=== PATIENT | female | born 1990 | race Caucasian/White ===

== ENCOUNTER → 2021-02-17 | Outpatient (CLI) | payer MEDICAID ==
[~2021-02-17] MED LIST: CLONAZEPAM1 MG PO; DULO30CA2 PO; LISD50CA3 PO
[2021-02-17 14:07] LABS: BASO # 0.1 x10^3/uL (0.0-0.2); BASO % 1 % (0-3); EOS # 0.4 x10^3/uL (0.0-0.7); EOS % 4 % (0-3); HEMATOCRIT 40.2 % (36.0-47.0); HEMOGLOBIN 13.1 g/dL (12.0-15.5); LYMPH # 2.9 x10^3/uL (1.0-4.8); LYMPH % 28 % (24-48); MEAN CORPUSCULAR HEMOGLOBIN 27 pg (25-35); MEAN CORPUSCULAR HGB CONC 33 g/dL (31-37); MEAN CORPUSCULAR VOLUME 83 fL (79-100); MONO # 0.6 x10^3/uL (0.0-1.1); MONO % 6 % (0-9); NEUT # 6.2 x10^3/uL (1.8-7.7); NEUT % 61 % (31-73); PLATELET COUNT 255 x10^3/uL (140-400); RED BLOOD COUNT 4.87 x10^6/uL (3.50-5.40); RED CELL DISTRIBUTION WIDTH 16.1 % (11.5-14.5); WHITE BLOOD COUNT 10.2 x10^3/uL (4.0-11.0)
[2021-02-17 14:08] LABS: BILIRUBIN,URINE NEGATIVE (NEG); CLARITY,URINE CLEAR; COLOR,URINE YELLOW; NITRITE,URINE NEGATIVE (NEG); PH,URINE 6.5 (<5.0-8.0); PROTEIN,URINE NEGATIVE (NEG-TRACE)
[2021-02-17 14:15] LABS: BACTERIA,URINE 0 /HPF (0-FEW); WBC,URINE OCC /HPF (0-4)
[2021-02-17 14:16] LABS: RBC,URINE 0 /HPF (0-2)
--- NOTE | 2021-02-17 14:24 | RAD ---
AP and Lateral Views of the Chest 02/17/2021 2:10 PM Indication: Reason: PRE OP, PT TO HAVE HYSTERECTOMY 03/01. Instructions: / History: Comparison: None Findings: There is no focal consolidation or infiltrate identified. The cardiomediastinal silhouette is within normal limits. There is no evidence of pneumothorax or pleural effusion. No acute osseous a bnormalities are identified. Impression: No evidence of acute cardiopulmonary process. Electronically signed by: Eben Corona MD (02/17/2021 2:22 PM) [id number]
[2021-02-17 14:46] LABS: ALBUMIN 3.5 g/dL (3.4-5.0); ALBUMIN/GLOBULIN RATIO 0.9 (1.0-1.7); CALCIUM 8.9 mg/dL (8.5-10.1); CREATININE 0.7 mg/dL (0.6-1.0); GFR 98.9; POTASSIUM 4.1 mmol/L (3.5-5.1); TOTAL BILIRUBIN 0.4 mg/dL (0.2-1.0); TOTAL PROTEIN 7.2 g/dL (6.4-8.2)
== END ==
LOC: SURGPAT 13:10
PROVIDERS: ATTEND Obstetrics & Gynecology
DX: Z01.818 Encounter for other preprocedural examination (principal); N92.0 Excessive and frequent menstruation with regular cycle; R52 Pain, unspecified; N80.9 Endometriosis, unspecified; N83.209 Unspecified ovarian cyst, unspecified side; Z87.891 Personal history of nicotine dependence
CPT/HCPCS: 36415; 71046; 80053; 81001; 85025

== ENCOUNTER → 2021-02-27 | Outpatient (CLI) | payer MEDICAID | LOC: LAB 14:27 | PROVIDERS: ATTEND Obstetrics & Gynecology | DX: Z01.812 Encounter for preprocedural laboratory examination (principal); Z20.822 Contact with and (suspected) exposure to COVID-19 | CPT/HCPCS: U0003; U0005 ==

== ENCOUNTER 2021-03-01 06:11 | Observation (INO) | payer MEDICAID ==
[2021-02-17 13:40] VITALS: BP 144/84
[2021-03-01] VITALS (11 sets, daily range): BP systolic 89–138; BP diastolic 49–86
[~2021-03-01] VITALS: Ht 172.7 cm; Wt 111.0 kg
[~2021-03-01 06:11] MED LIST changes: +HYDROmorphone 2 MG/ML VIAL IVP PRN; +IV RINGERS,LACTATED 1000ML 1,000 ML IV SCH; +PROCHLORPERAZINE 10 MG/2 ML VIAL. IVP PRN; +fentaNYL PF VIAL 100 MCG/2 ML VIAL IVP PRN
[2021-03-01] MEDS ORDERED: PROPOFOL 10 MG/ML (20ML) VIAL. IV ONE (07:04)
[2021-03-01] MEDS ORDERED: ROCURONIUM 50 MG/5 ML VIAL. ONE (07:04)
[2021-03-01] MEDS ORDERED: ESTROGENS, CONJ VAGINAL CREAM 30GM TUBE. ONE (07:04)
[2021-03-01] MEDS ORDERED: INDIGOTINDISULFONATE SODIUM 40 MG/5 ML AMPUL. ONE (07:05)
[2021-03-01] MEDS ORDERED: fentaNYL PF VIAL 100 MCG/2 ML VIAL ONE ×2 (07:05→09:30)
[2021-03-01] MEDS ORDERED: BUPIVACAINE-EPI 0.25%-1:200000 MPF 30 ML VIAL. ONE (07:05)
[2021-03-01] MEDS ORDERED: LIDOCAINE 1% PF 5 ML VIAL. ONE (07:10)
[2021-03-01] MEDS ORDERED: GLYCOPYRROLATE 1 MG/5 ML VIAL. ONE (07:10)
[2021-03-01] MEDS ORDERED: SUCCINYLCHOLINE 200 MG/10 ML VIAL. ONE (07:23)
[2021-03-01] MEDS ORDERED: HYDROmorphone 2 MG/ML VIAL ONE (08:53)
[2021-03-01] MEDS ORDERED: NEOSTIGMINE METHYLSULFATE 5 MG/5 ML SYRINGE. ONE (09:00)
[2021-03-01] MEDS ORDERED: 0.9 % SODIUM CHLORIDE 10 ML DISP.SYRIN. IV PRN (09:30)
[2021-03-01] MEDS ORDERED: ZOLPIDEM 5 MG TABLET. PO PRN (09:30)
[2021-03-01] MEDS ORDERED: MAGNESIUM HYDROXIDE 2,400 MG/30 ML ORAL.SUSP. PO PRN (09:30)
[2021-03-01] MEDS ORDERED: KETOROLAC 30 MG/ML VIAL. IVP PRN (09:30)
[2021-03-01] MEDS ORDERED: ONDANSETRON PF 4 MG/2 ML VIAL. IV PRN (09:30)
[2021-03-01] MEDS ORDERED: NALOXONE 0.4 MG/ML VIAL. IV PRN (09:30)
[2021-03-01] MEDS ORDERED: MAG HYDROX/ALUMINUM HYD/SIMETH 30 ML ORAL.SUSP PO PRN (09:30)
[2021-03-01] MEDS ORDERED: MORPHINE SULFATE 2 MG/ML INJ. IV PRN (09:30)
[2021-03-01] MEDS ORDERED: LACTULOSE 20 GM/30 ML SOLUTION. PO PRN (09:30)
[2021-03-01] MEDS ORDERED: CALCIUM CARBONATE 500 MG TAB.CHEW PO PRN (09:30)
[2021-03-01] MEDS ORDERED: diphenhydrAMINE HCL 25 MG CAPSULE PO PRN (09:30)
[2021-03-01] MEDS ORDERED: diphenhydrAMINE 50 MG/ML VIAL IV PRN (09:30)
[2021-03-01] MEDS: fentaNYL PF VIAL 100 MCG/2 ML VIAL IVP PRN ×2 (09:32→09:49)
--- NOTE | 2021-03-01 09:35 | PDOC4 ---
BRIEF OPERATIVE NOTE Date: Mar 01, 2021 Pre-Op Diagnosis menorrhagia, pain, history ovarian cyst Post-Op Diagnosis same plus endometriosis Procedure Performed LAVH/bilateral salpingectomy Surgeon Dr. Marilia Vega [employer] Coordinator ASHIA Tracy Anesthesiologist Dr. Hernandez Anesthesia Type: General Blood Loss 50cc IV Fluid 1L Urine Output 75cc clear via austin Specimens Obtained cervix, uterus, bilateral tubes Findings mildly enlarged uterus, normal bilateral tubes and ovaries; L ovary with mild endometriosis on it Complications none Operative Note [id number] MARILIA VEGA MD Mar 01, 2021 09:35
[2021-03-01] MEDS: MORPHINE SULFATE 2 MG/ML INJ. IVP PRN ×2 (09:49→10:02)
--- NOTE | 2021-03-01 10:44 | OP ---
DATE OF SURGERY: 03/01/2021 PREOPERATIVE DIAGNOSES: Menorrhagia, pelvic pain, history of ovarian cyst. POSTOPERATIVE DIAGNOSES: Menorrhagia; pelvic pain; history of ovarian cyst; plus some endometriosis, I believe it was prominently on the left ovary. PROCEDURES: Laparoscopic-assisted vaginal hysterectomy, bilateral salpingectomy. SURGEON: Marilia Vega MD [employer] ARCHITECT: ASHIA Jacobson ANESTHESIA: General. ANESTHESIOLOGIST: Suraj Hernandez MD BLOOD LOSS: 50 mL. URINE OUTPUT: 75 mL clear via La catheter. INTRAVENOUS FLUIDS: One liter of crystalloid. SPECIMENS: Cervix, uterus and bilateral tubes. FINDINGS: A mildly enlarged uterus, normal bilateral tubes and ovaries except endo on the left ovary, but no enlarged cystic lesions were seen. COMPLICATIONS: None. DESCRIPTION OF PROCEDURE: This patient was taken to the operating room where general anesthesia was placed. The patient was placed in dorsal lithotomy position in [facility]. The patient's abdomen and vagina were prepped and draped in the normal sterile fashion and a La catheter had been inserted under sterile technique prior to my arrival. Upon my arrival, a timeout was performed. Once everyone agreed on the patient, the site, the procedure, the antibiotics, the procedure was initiated. A bivalve speculum was placed in the patient's vagina. A single-tooth tenaculum was used to grasp the anterior lip of the cervix. A 10 mL of 0.25% Marcaine with epinephrine was used to circumferentially inject around the cervix for both hemo-dissection and hemostatic purposes later. The Valtchev uterine manipulator was placed through the endocervical os, locked on the single tooth tenaculum and the bivalve speculum was then removed. Top gloves were discarded and changed. Attention was then turned to the abdomen where a small infraumbilical skin incision was made over the existing scar. A curved Eva was used to dissect through the subcuticular layer to the fascia. The 5-mm Visiport was used to directly enter the abdominal cavity. Opening the patient's pressure was 5-6 mmHg. Carbon dioxide gas was used to appropriately insufflate the abdominal cavity to maintain a pressure of 15 mmHg. At this point, overhead lights were dimmed and the patient was placed in Trendelenburg position. Right and left lower quadrant ports were placed after transilluminating the abdominal wall, finding an area clear of any vasculature, injecting with local and placing the 5-mm port in under direct visualization, 4-5 mL of air was placed in these trocar cuffs. The camera was then moved laterally to look at the umbilical port. Once it was found to be in and clear, it was also insufflated with the 4-5 mL of air. Again, overhead lights had been dimmed, Trendelenburg position, so the bowel was swept up and out of the way. Uterus was elevated. Cul-de-sac was normal; endo on the left ovary, but no enlarged cystic lesions; tubes looked good; ureter was seen on the left, coursing low in the pelvis; right side was identified as well, so we are going above the ovary, below the tube just doing a salpingectomy, so using the LigaSure starting on the left, cauterizing and cutting above the ovary, below the tube, crossing the left round ligament and the left utero-ovarian pedicle. This was done exactly the same on the right side, elevating the right tube and ovary; going below the tube above the ovary; doing a salpingectomy with the LigaSure; crossing the right utero-ovarian pedicle and right round ligament. The uterus was then pushed cephalad with the manipulator and grasped. A [place] was used to grasp the bladder flap and the monopolar hook was used to cut across and create the bladder flap sharply. It peeled down very, very nicely and easily. Crossing contralaterally, getting the uterines on the left side, staying inside that pedicle through the cardinal and broad ligaments down to the level of the uterosacral, 3-4 bites were taken, cauterizing and cutting the whole way down. Then, on the right side, coming across, getting the uterines and staying inside that pedicle, hugging posteriorly through the cardinal and broads to the uterosacral on that side as well. The entire uterus was free and completely blanched at this point. There was no active bleeding, so all instruments were removed from the abdomen and overhead lights were placed back on and she was taken out of Trendelenburg. Attention was turned vaginally where the single tooth and Valtchevs were removed. A weighted speculum was placed in the patient's vagina. Thyroid Dickson clamps were placed on the anterior and posterior lips of the cervix respectively. A scalpel was used to make a circumferential incision in the cervix. The anterior was taken off the cervix sharply and bluntly finally using the open Ray-Trice 4 x 4 once a plane was and the anterior cul-de-sac was digitally and bluntly entered. The Ray-Trice was passed off and the curved Anastasia was placed in the anterior cul-de-sac. The cervix was elevated and the posterior cul-de-sac was sharply entered with curved Espino scissors. A #0 Vicryl stitch was used to secure the posterior peritoneum here to the vaginal cuff. It was tagged with a curved Eva clamp and the needle was cut and passed off. At this point, the short-weighted vaginal speculum was removed and replaced with the long-weighted El speculum in the posterior cul-de-sac. Curved Phillip clamps x 2 were placed on the patient's left uterosacral ligament where they were doubly clamped with curved Heaneys, cut with curved Espino scissors and suture ligated x 2 with 0 Vicryl. Second one was taken through the vaginal cuff, securing uterosacral ligament to the vaginal cuff, tagging it with a straight Eva clamp and cutting and passing the needle off. This was done exactly the same on the patient's right side, double clamping the uterosacrals with curved Phillip's, cutting with curved Espino scissors and suture ligating x 2 with 0 Vicryl, taking the second one through the vaginal cuff, securing the uterosacral ligament to the vaginal cuff, tagging it with a straight Eva clamp and cutting and passing the needle off. The remaining pedicles on both sides were delineated with the curved mixture. The right angle clamp and the vaginal LigaSure was used to cauterize and cut the remaining pedicles. The cervix and uterus with bilateral tubes were attached, were delivered in total and passed off for permanent pathology. A sponge stick was used to reduce the omentum and the anterior bladder peritoneum was grasped with a long Allis. The long El speculum was removed and replaced with the short-weighted vaginal speculum. There was no active bleeding on any of the pedicles, so at this point, 2-0 Vicryl was taken through the anterior bladder peritoneum, left uterosacral ligament, posterior peritoneum and right uterosacral ligament, thus closing the peritoneum in a pursestring-like fashion. The right and left uterosacral tags were clipped. The cuff was closed in an anterior to posterior running locked fashion and tied to the posterior cuff tag. A sponge stick was used to examine the vaginal cuff and it was completely dry and hemostatic. So at this point, all instruments were removed. All instruments had been counted x 2 by OR personnel and were correct below before going above. At this point, the overhead lights were re-dimmed. The patient was placed back in Trendelenburg. She was reinsufflated with carbon dioxide gas and copious irrigation revealed hemostasis. Tisseel was placed over the vaginal cuff, right and left lower quadrant ports, the gas was taken out of all 3 of the ports. Right and left lower quadrant ports were removed under direct visualization, they were hemostatic. The cuff remained dry. The right and left pericolic gutters were clear. The appendix was normal. The right upper quadrant liver edge was normal. The bowel was grossly normal. So at this point, gas was released from the umbilical port. Once it was done, it was removed. All 3 port sites were closed with 4-0 nylon at the skin. The patient was awakened from anesthesia and has been brought to recovery room in stable condition. LENA/STACEY DR: Alaina TID: [id number]
[2021-03-01] MEDS: oxyCODONE/APAP 5/325 1 TAB TABLET PO PRN ×3 (13:14→22:14)
[2021-03-01] MEDS: SIMETHICONE 80 MG TAB.CHEW PO PRN ×2 (18:14→22:18)
[2021-03-02 02:15] VITALS: BP 123/69
[2021-03-02] MEDS: oxyCODONE/APAP 5/325 1 TAB TABLET PO PRN ×4 (02:15→10:42)
--- NOTE | 2021-03-02 02:15 | NUR ---
Medication not scanned due to [facility] downtime. Addendum: 03/02/21 at 0610 by ELLIOT MOSELEY RN RN 1 Dustin at [id number]
[2021-03-02 06:28] VITALS: BP 125/64
[2021-03-02 06:44] LABS: CALCIUM 8.4 mg/dL (8.5-10.1); CREATININE 0.7 mg/dL (0.6-1.0); GFR 98.9; POTASSIUM 4.1 mmol/L (3.5-5.1)
[2021-03-02 08:15] VITALS: BP 125/64
[2021-03-02] MEDS: SIMETHICONE 80 MG TAB.CHEW PO PRN (08:45)
--- NOTE | 2021-03-02 10:19 | PDOC ---
SURGICAL PROGRESS NOTE DATE: 03/02/21 TIME: 10:11 Subjective up in bed. Has eaten a full diet, amblated well, voided without catheter Vital Signs Vital Signs Date Time Temp Pulse Resp B/P (MAP) Pulse Ox O2 Delivery O2 Flow Rate FiO2 03/02/21 08:15 98.3 67 16 125/64 (84) 98 Room Air 98.3 03/01/21 10:02 6.0 I&O Intake and Output 03/02/21 07:00 Intake Total 1250 ml Output Total 500 ml Balance 750 ml Intake IV Total 1250 ml Output Urine Total 450 ml Estimated Blood Loss 50 ml PATIENT HAS A SUMMERS: No General: Alert, Oriented X3, Cooperative, No acute distress HEENT: Atraumatic Heart: Regular rate Abdomen: Soft Extremities: No clubbing, No cyanosis, No edema Skin: No rashes, No breakdown, No significant lesion Neuro: Normal speech Psych/Mental Status: Mental status NL, Mood NL Labs Laboratory Tests Test 03/01/21 06:22 03/02/21 06:10 Bedside Urine HCG, Qualitative Hcg negative (Negative) Hematocrit 39.0 % (36.0-47.0) Sodium Level 138 mmol/L (136-145) Potassium Level 4.1 mmol/L (3.5-5.1) Chloride Level 104 mmol/L (98-107) Carbon Dioxide Level 27 mmol/L (21-32) Anion Gap 7 (6-14) Blood Urea Nitrogen 10 mg/dL (7-20) Creatinine 0.7 mg/dL (0.6-1.0) Estimated GFR (Cockcroft-Gault) 98.9 Glucose Level 118 mg/dL (70-99) Calcium Level 8.4 mg/dL (8.5-10.1) Laboratory Tests Test 03/02/21 06:10 Hematocrit 39.0 % (36.0-47.0) Sodium Level 138 mmol/L (136-145) Potassium Level 4.1 mmol/L (3.5-5.1) Chloride Level 104 mmol/L (98-107) Carbon Dioxide Level 27 mmol/L (21-32) Anion Gap 7 (6-14) Blood Urea Nitrogen 10 mg/dL (7-20) Creatinine 0.7 mg/dL (0.6-1.0) Estimated GFR (Cockcroft-Gault) 98.9 Glucose Level 118 mg/dL (70-99) Calcium Level 8.4 mg/dL (8.5-10.1) I have reviewed the following labs, vitals, nursing Cardiovascular: No pertinent hx Pulmonary: No pertinent hx GI: No pertinent hx Heme/Onc: No pertinent hx Psych: No pertinent hx Assessment/Plan POD#1 s/p LAVH/bilateral salpingectomy Routine PO care pt's mom was at hospital yesterday and went home testing positive for COVID NPV x 6 weeks light/limited x 2 [address] on the narcotic x 1 weeks or as long as on narcotic pain meds [id number] has pain pills at home already has follow up appt call or return sooner for any other questions or concerns not limited to but including pain unrelieved with pain meds increased or unexplained vb, T>100.4 Justicifation of Admission Dx: Justifications for Admission: Justification of Admission Dx: Yes ENIO BOWLES MD Mar 02, 2021 10:19
--- NOTE | 2021-03-02 10:21 | PDOC3 ---
Discharge Summary Visit Information Date of Admission: Mar 01, 2021 Date of Discharge: Mar 02, 2021 Brief Hospital Course Allergies Allergies Coded Allergies Type Severity Reaction Last Updated Verified codeine Allergy Intermediate Nausea and Vomiting 02/17/21 Yes Vital Signs Vital Signs Date Time Temp Pulse Resp B/P (MAP) Pulse Ox O2 Delivery O2 Flow Rate FiO2 03/02/21 08:15 98.3 67 16 125/64 (84) 98 Room Air 98.3 03/01/21 10:02 6.0 Lab Results Laboratory Tests Test 03/01/21 06:22 03/02/21 06:10 Bedside Urine HCG, Qualitative Hcg negative (Negative) Hematocrit 39.0 % (36.0-47.0) Sodium Level 138 mmol/L (136-145) Potassium Level 4.1 mmol/L (3.5-5.1) Chloride Level 104 mmol/L (98-107) Carbon Dioxide Level 27 mmol/L (21-32) Anion Gap 7 (6-14) Blood Urea Nitrogen 10 mg/dL (7-20) Creatinine 0.7 mg/dL (0.6-1.0) Estimated GFR (Cockcroft-Gault) 98.9 Glucose Level 118 mg/dL (70-99) Calcium Level 8.4 mg/dL (8.5-10.1) Laboratory Tests Test 03/02/21 06:10 Hematocrit 39.0 % (36.0-47.0) Sodium Level 138 mmol/L (136-145) Potassium Level 4.1 mmol/L (3.5-5.1) Chloride Level 104 mmol/L (98-107) Carbon Dioxide Level 27 mmol/L (21-32) Anion Gap 7 (6-14) Blood Urea Nitrogen 10 mg/dL (7-20) Creatinine 0.7 mg/dL (0.6-1.0) Estimated GFR (Cockcroft-Gault) 98.9 Glucose Level 118 mg/dL (70-99) Calcium Level 8.4 mg/dL (8.5-10.1) Brief Hospital Course Ms. Piper is a 30 old [sex] who presented with [ ] Discharge Information Condition at Discharge: Improved Follow Up: Weeks Disposition/Orders: D/C to Home Scheduled Clonazepam (Clonazepam) 1 Mg Tablet, 0.5 MG PO Q6HRS for FOR ANXIETY, (Reported) Entered as Reported by: MELODY ALEJANDRA on 02/17/211333 Last Taken: Unknown Dose on 02/27/21 Last Action: Reviewed on 03/01/21632 by MELODY ALEJANDRA Lisdexamfetamine Dimesylate (Vyvanse) 50 Mg Capsule, 1 CAP PO [id number] for adhd MDD 1 Capsule(s) for 5 Days, #5 Ref 0 (Reported) Entered as Reported by: MELODY ALEJANDRA on 02/17/211332 Last Taken: Unknown Dose on 02/27/21 Last Action: Reviewed on 03/01/21632 by MELODY ALEJANDRA Discontinued Medications Duloxetine Hcl (Cymbalta) 30 Mg Capsule., 1 CAP PO DAILY for depression, #30 Ref 5 (Reported) Entered as Reported by: MELODY ALEJANDRA on 02/17/211332 Last Taken: Unknown Dose on 02/27/21 Last Action: Discontinued on 03/01/21632 by MELODY ALEJANDRA Patient Instructions Patient Instructions POD#1 s/p LAVH/bilateral salpingectomy Routine PO care pt's mom was at hospital yesterday and went home testing positive for COVID NPV x 6 weeks light/limited x 2 weeks NO driving on the narcotic x 1 weeks or as long as on narcotic pain meds [id number] has pain pills at home already has follow up appt call or return sooner for any other questions or concerns not limited to but including pain unrelieved with pain meds increased or unexplained vb, T>100.4 Justicifation of Admission Dx: Justifications for Admission: Justification of Admission Dx: Yes ENIO BOWLES MD Mar 02, 2021 10:21
[2021-03-02 11:35] VITALS: BP 133/85
--- NOTE | 2021-03-02 11:35 | NUR ---
dismissed to home with home care instructions given . w/c out to grandmother in car Stable
== END 2021-03-02 11:35 | disposition home or self-care (01) ==
LOC: SURG 06:11 → EDUNIT# 07:30 → 3 SO LND 09:30
PROVIDERS: ADMIT Obstetrics & Gynecology; ATTEND Obstetrics & Gynecology
DX: N92.0 Excessive and frequent menstruation with regular cycle (principal); Z20.822 Contact with and (suspected) exposure to COVID-19; N85.2 Hypertrophy of uterus; R93.89 Abnormal findings on diagnostic imaging of other specified body structures; F41.9 Anxiety disorder, unspecified; F90.9 Attention-deficit hyperactivity disorder, unspecified type; F32.A Depression, unspecified; F17.210 Nicotine dependence, cigarettes, uncomplicated; Z68.37 Body mass index [BMI] 37.0-37.9, adult; Z79.899 Other long term (current) drug therapy; Z98.890 Other specified postprocedural states
CPT/HCPCS: 36415; 58552; 80048; 81025; 85014; 86850; 86900; 86901; 88307; A4930; A6219; G0378; G0379; J0330; J0690; J0780; J1170; J2270; J2704; J2710; J3010; J3490; A4315; A4657